=== PATIENT | female | born 1980 | race Hispanic/Latino ===

== ENCOUNTER 2021-07-26 23:26 | Emergency (ER) | payer BC ==
[~2021-07-26] VITALS: Ht 162.6 cm; Wt 136.5 kg
[2021-07-26] MEDS ORDERED: SODIUM CHLORIDE 0.9% 1000ML 1,000 ML IV STA (23:47)
[2021-07-27] MEDS ORDERED: SODIUM CHLORIDE 0.9% 1000ML 1,000 ML ONE (00:09)
[2021-07-27] MEDS ORDERED: LEVOFLOXACIN250 MG PO (01:52)
[2021-07-27 02:07] VITALS: BP 120/79
== END 2021-07-27 02:07 | disposition home or self-care (01) ==
LOC: FSED 23:45
DX: R10.30 Lower abdominal pain, unspecified (principal); E11.65 Type 2 diabetes mellitus with hyperglycemia
CPT/HCPCS: 74176; 80053; 81003; 81025; 85025; 99284; J7030

== ENCOUNTER 2022-01-13 14:04 | Emergency (ER) | payer OTHER ==
[~2022-01-13] VITALS: Ht 162.6 cm; Wt 135.9 kg
[~2022-01-13 14:04] MED LIST: LEVOFLOXACIN250 MG PO
[2022-01-13] MEDS ORDERED: SODIUM CHLORIDE 0.9% 1000ML 1,000 ML IV STA (14:35)
[2022-01-13] MEDS ORDERED: PIPERACILLIN/TAZOBACTAM 3.375 GM in SODIUM CHLORIDE 0.9% 50ML 50 ML IV ONE (14:45)
[2022-01-13] MEDS ORDERED: Vancomycin IV 1 GM in SODIUM CHLORIDE 0.9% 250ML 250 ML IV ONE (14:45)
[2022-01-13] MEDS ORDERED: IOPAMIDOL 370 MG/ML 200 ML INFUS..BTL INJ ONE (14:51)
[2022-01-13] MEDS ORDERED: SODIUM CHLORIDE 0.9% 50ML 50 ML ONE ×2 (14:51→15:11)
[2022-01-13] MEDS ORDERED: ONDANSETRON HCL INJ 2MG/ML 2ML 2 MG/ML VIAL IV STA (15:05)
[2022-01-13] MEDS ORDERED: Vancomycin IV 1 GM VIAL ONE (15:11)
[2022-01-13] MEDS ORDERED: SODIUM CHLORIDE 0.9% 1000ML 1,000 ML ONE (15:11)
[2022-01-13] MEDS ORDERED: SODIUM CHLORIDE 0.9% 250ML 250 ML ONE (15:11)
[2022-01-13] MEDS ORDERED: PIPERACILLIN/TAZOBACTAM 3.375 GM VIAL ONE (15:11)
[2022-01-13] MEDS ORDERED: Morphine 4mg Syringe 4 MG/ML INJ IV ONE (15:15)
[2022-01-13] MEDS ORDERED: ONDANSETRON HCL INJ 2MG/ML 2ML 2 MG/ML VIAL ONE (15:46)
[2022-01-13] MEDS ORDERED: Morphine 4mg Syringe 4 MG/ML INJ ONE (15:46)
[2022-01-13] MEDS ORDERED: CEPHALEXIN500 MG PO (16:09)
== END 2022-01-13 17:52 | disposition home or self-care (01) ==
LOC: FSED 14:10
DX: R10.11 Right upper quadrant pain (principal); R10.31 Right lower quadrant pain; E11.65 Type 2 diabetes mellitus with hyperglycemia; E78.5 Hyperlipidemia, unspecified; R16.0 Hepatomegaly, not elsewhere classified
CPT/HCPCS: 74177; 80053; 81003; 81025; 83605; 85025; 87040; 87086; 96374; 96375; 99284; J2270; J2405; J2543; J3370; J7030; J7050; Q9967

== ENCOUNTER 2022-05-11 15:21 | Emergency (ER) | payer OTHER ==
[~2022-05-11] VITALS: Ht 162.6 cm; Wt 122.5 kg
[~2022-05-11 15:21] MED LIST changes: +CEPHALEXIN500 MG PO
[2022-05-11] MEDS ORDERED: Clindamycin INJ 150 MG/ML 600 MG Vial IM ONE (15:45)
[2022-05-11] MEDS ORDERED: Clindamycin INJ 150 MG/ML 600 MG Vial ONE (16:41)
[2022-05-11] MEDS ORDERED: PIPERACILLIN/TAZOBACTAM 3.375 GM VIAL ONE (16:42)
[2022-05-11] MEDS ORDERED: CLEOCIN HCL300 MG PO (17:35)
[2022-05-11 18:20] VITALS: BP 128/68
== END 2022-05-11 18:00 | disposition home or self-care (01) ==
LOC: FSED 15:33
DX: Z48.01 Encounter for change or removal of surgical wound dressing (principal); Z98.84 Bariatric surgery status; E11.9 Type 2 diabetes mellitus without complications; E78.5 Hyperlipidemia, unspecified; E66.9 Obesity, unspecified
CPT/HCPCS: 74176; 80053; 81003; 81025; 85025; 99284; J2543

== ENCOUNTER 2022-07-18 18:50 | Emergency (ER) | payer OTHER ==
[~2022-07-18] VITALS: Ht 162.6 cm; Wt 108.4 kg
[~2022-07-18 18:50] MED LIST changes: +CLEOCIN HCL300 MG PO
[2022-07-18 20:07] LABS: BASOPHILS # (AUTO) 0.1 (0.0-0.1); BASOPHILS % 0.5 % (0.0-1.0); EOSINOPHILS # (AUTO) 0.3 (0.0-0.4); EOSINOPHILS % 2.7 % (0.0-6.0); HEMATOCRIT 32.4 % (34.2-44.1); HEMOGLOBIN 9.4 g/dL (12.0-16.0); LYMPHOCYTES # (AUTO) 2.9 (1.0-3.2); LYMPHOCYTES % 28.7 % (18.0-39.1); MEAN CORPUSCULAR HEMOGLOBIN 23.1 pg (28-32); MEAN CORPUSCULAR VOLUME 79.6 fL (81-99); MONOCYTES # (AUTO) 0.5 (0.2-0.8); NEUTROPHILS # (AUTO) 6.3 (2.1-6.9); NEUTROPHILS % 62.9 % (38.7-80.0); PLATELET COUNT 468 x10e3/uL (140-360); RED BLOOD COUNT 4.07 x10e6/uL (3.6-5.1); RED CELL DISTRIBUTION WIDTH 16.4 % (11.7-14.4)
[2022-07-18 20:15] LABS: CLARITY,URINE SL CLOUDY (CLEAR); COLOR,URINE YELLOW (YELLOW); KETONES,URINE 2+ (NEGATIVE); LEUKOCYTE ESTERASE ,URINE NEGATIVE (NEGATIVE); NITRITE,URINE NEGATIVE (NEGATIVE); PROTEIN,URINE DIPSTICK NEGATIVE (NEGATIVE); URINE UROBILINOGEN 1 mg/dL (0.2 - 1)
[2022-07-18 20:18] LABS: ALANINE AMINOTRANSFERASE 12 IU/L (0-55); ALBUMIN 3.4 g/dL (3.5-5.0); ALBUMIN/GLOBULIN RATIO 0.9 (0.8-2.0); ALKALINE PHOSPHATASE 59 IU/L (40-150); BLOOD UREA NITROGEN 11 mg/dL (7-26); BUN/CREATININE RATIO 17 (6-25); CALCIUM 8.9 mg/dL (8.4-10.2); CARBON DIOXIDE 25 mmol/L (22-29); CHLORIDE 103 mmol/L (98-107); CREATINE KINASE 49 IU/L (29-168); CREATININE, SERUM 0.63 mg/dL (0.57-1.11); GLUCOSE 113 mg/dL (74-118); SODIUM 142 mmol/L (136-145)
[2022-07-18 20:32] LABS: BACTERIA,URINE MODERATE /HPF; EPITHELIAL CELLS,URINE MODERATE /LPF
[2022-07-18] MEDS ORDERED: IOPAMIDOL 370 MG/ML 100 ML INFUS..BTL INJ ONE (20:53)
[2022-07-18] MEDS ORDERED: CIPRO500 MG PO (22:14)
[2022-07-18 22:23] VITALS: BP 137/76
== END 2022-07-18 22:25 | disposition home or self-care (01) ==
LOC: ER 18:54
DX: R60.9 Edema, unspecified (principal); N39.0 Urinary tract infection, site not specified; E78.5 Hyperlipidemia, unspecified; E11.9 Type 2 diabetes mellitus without complications; E66.9 Obesity, unspecified; Z98.84 Bariatric surgery status
CPT/HCPCS: 36415; 71045; 74177; 80053; 81001; 81025; 82550; 82553; 83690; 83880; 84484; 85025; 93005; 99284; Q9967